=== PATIENT | female | born 1980 | race Caucasian/White ===

== ENCOUNTER 2024-05-29 14:51 | Emergency (ER) | payer BC, SELFPAY ==
[2024-05-29 15:04] VITALS: BP 129/86
[2024-05-29 15:32] LABS: Urine Albumin Trace (Neg - Trace); Urine Bilirubin 1+ (Negative); Urine Character Clear (Clear); Urine Glucose Negative (Negative); Urine Ketone 1+ (Negative); Urine Leukocyte Negative (Negative); Urine Nitrite Positive (Negative); Urine Occult Blood 4+ (Negative); Urine Specific Gravity 1.005 (<1.030); Urine Urobilinogen 2+ (Neg - 1+)
[2024-05-29 15:43] LABS: Urine Color Amber
--- NOTE | 2024-05-29 16:00 | ED.GENMED ---
History of Present Illness
General
Chief Complaint: Flank Pain
Source: patient
Exam Limitations: none
Time Seen by Provider: 05/29/24 15:48
History of Present Illness
History of Present Illness:
43-year-old female who presents with L flank pain. she reports that for the last 3 days has had pain, urgency, and dysuria. yesterday started with L flank pain and today it got worse. Patient does report a history of kidney stones. States she felt
chilled at home but no ashley fevers. No vomiting.
Past History
Past History
ED Past Medical History: Other (UTI, kidney stones, bipolar disorder, seizures)
Phy Exam
Physical Exam
Physical Exam:
CONSTITUTIONAL Vital signs reviewed, Patient alert and oriented to person, place and time. Well-appearing
HEAD atraumatic, normocephalic.
EYES eyelids normal to inspection, Extraocular muscles intact, Conjunctiva normal, Sclera normal.
NECK normal range of motion, Trachea midline, no jugular venous distention.
RESP no respiratory distress
BACK No obvious deformities, mild left CVA tenderness
Abdomen soft and nontender
UPPER EXTREMITY Gross Range of motion normal, gross motor strength normal
LOWER EXTREMITY Gross range of motion normal, Gross motor strength normal
NEURO Speech normal, No focal motor deficits include, Wedgefield coma scale 15, Memory normal, Cranial Nerves intact to screening exam.
SKIN Skin warm, dry, and normal in color.
PSYCHIATRIC Patient oriented to person place and time, Normal affect.
Course
Orders/Labs/Results
Orders:
Orders
05/29/24 15:19
Urinalysis Reflex To Culture Urgent
Date Specimen was Collected: 05/29/24
Time Specimen was Collected: 15:08
Urine Microscopic Reflex Cult Urgent
Urine Culture Urgent
MARTHA Source: U
Specimen Description:
Date Specimen was Collected: 05/29/24
Time Specimen was Collected: 15:08
05/29/24 15:58
US Renal With Bladder Urgent
Comment: bladder not full ok, looking at ureteral jets
Reason For Exam: L flank pain, h/o stones, currently with UTI
05/29/24 16:29
LevoFLOXacin [Levaquin] 750 mg PO NOW STA
Abnormal Lab Results
05/29/24
15:19
Urine Ketones 1+ A
(Negative)
Ur Occult Blood Reflex 4+ A
(Negative)
Urine Nitrite (Reflex) Positive A
(Negative)
Urine Bilirubin 1+ A
(Negative)
Urine Urobilinogen 2+ A
(Neg - 1+)
Urine Bacteria (Reflex) Few A
(Negative)
Vital Signs
Initial and Last Documented VS:
Initial Vital Signs
Temp Pulse Resp BP Pulse Ox
98.2 F 88 18 129/86 94
05/29/24 15:04 05/29/24 15:04 05/29/24 15:04 05/29/24 15:04 05/29/24 15:04
Last Documented Vital Signs
Temp Pulse Resp BP Pulse Ox
98.2 F 88 18 129/86 94
05/29/24 15:04 05/29/24 15:04 05/29/24 15:04 05/29/24 15:04 05/29/24 15:04
MDM/Problems Addressed
MDM/Problems Addressed:
Urinary tract infection
*Radiology
Radiology exam reviewed: radiology read reviewed
*Pulse Oximetry
Patient hypoxic: no
*Critical Care Note
Total Time (30-74mins, 75-104mins- exclusive of procedures): Not Applicable
Data Reviewed
Source: patient
Further Testing Considered But Not Given:
Consider CT but ultrasound shows no hydronephrosis.
Patient Management
Escalation/DeEscalation of care consider admission/obs:
Cover with Levaquin daily as per up-to-date. Patient is well-appearing and okay for discharge. Suspect pyelonephritis as etiology of her symptoms
ED Attending Note
-
Portions of this chart may have been created with voice recognition software.� Occasional wrong word or��sound alike� substitutions may have occurred due to the inherent limitations of voice recognition software.
Discharge Plan
Departure
Patient Disposition: Home (Routine Discharge)
Date of Disposition: 05/29/24
Time of Disposition: 17:49
Patient with high blood pressure during this ER visit?: No
Discharge Problem:
Pyelonephritis
Instructions: Urinary Tract Infection, Adult ED
Prescriptions:
New
levofloxacin 750 mg tablet
750 mg PO DAILY 7 Days Qty: 7 0RF
No Action
amoxicillin 875 mg tablet
875 mg PO BID Qty: 10 0RF
Referrals:
Maren Perkins MD [Family Provider] -
Activity Restrictions/Additional Instructions:
Please drink plenty fluids. Use ibuprofen and Tylenol for pain control. Please see your doctor in the next 1 week for follow-up and reevaluation. Return immediately for intractable vomiting, intolerance of antibiotics, worsening symptoms, or any
other concerns.
Interventions
Interventions:
*Risk Screen - Suicide Last Done: 05/29/24 15:04
*General Assessment Last Done: 05/29/24 15:04
*Neglect/Abuse Screening Last Done: 05/29/24 15:04
PQ-Nwcsnc-Upmorfezmj Assessment Last Done: 05/29/24 15:56
ED-Female Genitourinary Assessment Last Done: 05/29/24 15:56
Discharge Date and Time
Print Language: MONGOLIAN
[2024-05-29] MEDS: LEVAQUIN 750 MG PO (17:04)
[2024-05-29 17:23] LABS: Urine Bacteria Few (Negative); Urine Red Blood Cell 0-2 /HPF (0-2); Urine White Cell 0-2 /HPF (0-5)
[2024-05-29 17:50] VITALS: BP 128/78
== END 2024-05-29 18:02 | disposition home or self-care (01) ==
LOC: EMR 14:51
PROVIDERS: EMERGENCY PHYSICIAN Emergency Medicine; FAMILY PHYSICIAN Internal Medicine
DX: N10 Acute pyelonephritis (principal); F31.9 Bipolar disorder, unspecified; R56.9 Unspecified convulsions; Z87.442 Personal history of urinary calculi; Z87.440 Personal history of urinary (tract) infections
CPT/HCPCS: 99284; 76770; 81003; 81015; 87086

== ENCOUNTER 2025-08-24 01:02 | Emergency (ER) | payer BC, SELFPAY ==
[2025-08-24 01:05] VITALS: BP 170/88
[2025-08-24 01:17] VITALS: BMI 30.3
[2025-08-24 01:33] LABS: Urine Character Clear (Clear)
[2025-08-24] MEDS: ZOFRAN 4 MG IV (01:37)
[2025-08-24] MEDS: TORADOL 15 MG IV (01:37)
[2025-08-24] MEDS: NSS 1000 IV (01:39)
[2025-08-24 01:43] VITALS: BP 134/95
[2025-08-24 01:46] LABS: Urine Squamous Cell 26-30 /LPF (Few)
[2025-08-24 01:49] LABS: Urine Red Blood Cell 16-20 /HPF (0-2)
[2025-08-24 01:50] LABS: ALT (SGPT) 26 U/L (0-35); AST (SGOT) 26 U/L (14-36); Albumin 4.2 g/dl (3.5-5.0); Alkaline Phosphatase 71 U/L (38-126); Blood Urea Nitrogen 23 mg/dl (7-17); Calcium 9.6 mg/dl (8.4-10.2); Carbon Dioxide 21 mmol/L (22-30); Chloride 109 mmol/L (98-107); Estimated Creatinine Clearance 80 ml/min; Glucose 125 mg/dl (70-99); Potassium 3.8 mmol/L (3.5-5.1); Sodium 138 mmol/L (135-145); Total Protein 6.7 g/dl (6.3-8.2); eGFR > 60.00
[2025-08-24 01:52] LABS: HCG, Urine Qualitative Screen Negative
[2025-08-24 01:58] LABS: Hematocrit 42.0 % (37.0-47.0); Hemoglobin 13.9 g/dL (12.0-16.0); Mean Corp Hgb Conc. 33.1 g/dL (33.0-37.0); Mean Corpuscular Volume 85.7 fL (81.0-99.0); Nucleated Red Blood Cells % 0 %; Platelet Count 279 10^3/uL (130-400); Red Cell Dist. Width 13.2 % (11.5-14.5)
[2025-08-24 02:00] VITALS: BP 122/78
--- NOTE | 2025-08-24 02:53 | ED.GENMED ---
History of Present Illness
General
Chief Complaint: Flank Pain
Time Seen by Provider: 08/24/25 01:09
History of Present Illness
History of Present Illness:
Note:
CHIEF COMPLAINT(S)
Lower abdominal pain and vomiting.
HISTORY OF PRESENT ILLNESS
The patient is a 44-year-old female with a history of kidney stones, presenting with lower abdominal pain that she describes as 'stabbing' in nature, radiating to the vaginal area. The symptoms started earlier today. The patient reports episodes of
nausea and vomiting, with the most recent episode occurring around 9:00 AM. She took ibuprofen for pain relief earlier but it did not provide significant relief. She mentions occasional urination with small volumes and denies having fever or chills.
The patient is currently in perimenopause, experiencing menstrual cycles every two weeks and denies any possibility of . Also, she is concerned about a potential bladder-related issue.
PAST MEDICAL HISTORY
Seizure disorder.
PAST SURGICAL HISTORY
Not discussed.
ADDITIONAL HISTORY OBTAINED FROM SOURCES OTHER THAN THE PATIENT
Not discussed.
EXTERNAL RECORDS REVIEWED
Not discussed.
CHRONIC MEDICAL CONDITIONS SIGNIFICANTLY AFFECTING CARE
History of kidney stones.
Seizure disorder.
SOCIAL DETERMINANTS AFFECTING HEALTH
Not discussed.
ALLERGIES
Not discussed.
FAMILY HISTORY
Not discussed.
IMMUNIZATION HISTORY
Not discussed.
SOCIAL HISTORY
The patient is a teacher.
MEDICATIONS
Ibuprofen, as needed for pain.
Topamax for seizures.
REVIEW OF SYSTEMS
- Constitutional: Denies fever or chills.
- Gastrointestinal: Nausea and vomiting noted.
- Genitourinary: Occasional urination with small volume, no fever.
- Neurological: History of seizures, maintained on Topamax.
PHYSICAL EXAM
General: Alert, no acute distress.
Skin: Warm, dry.
Head: Normocephalic, atraumatic.
Neck: Supple, trachea midline.
Eyes, Ears, Nose, Mouth, and Throat: Oral mucosa moist.
Cardiovascular: Normal peripheral perfusion, no edema.
Respiratory: Respirations are non-labored.
Gastrointestinal: Abdomen nondistended.
Back: Normal range of motion, normal alignment.
Musculoskeletal: Normal range of motion, normal strength.
Neurological: Alert and oriented to person, place, time, and situation. No focal neurological deficit observed.
Psychiatric: Cooperative, appropriate mood and affect.
PROBLEM LIST
Acute:
- Lower abdominal pain with vomiting, likely related to kidney stone or urinary infection.
Chronic:
- Seizure disorder.
PLAN
- Perform a CT scan to evaluate for possible kidney stones or other causes of abdominal pain.
- Conduct a urine analysis to check for urinary tract infection.
- Administer medication for nausea as needed.
- Prescribe Toradol for pain management if ibuprofen is ineffective.
DIFFERENTIAL DIAGNOSIS
The Differential Diagnosis includes, in no particular order and is not limited to:
1. Kidney stones
2. Urinary tract infection
3. Ovarian cyst
4. Ectopic (ruled out due to no chance of )
5. Appendicitis
6. Gastroenteritis
7. Pelvic inflammatory disease
8. Diverticulitis
9. Small bowel obstruction
10. Endometriosis
Disposition:
SUMMARY OF ENCOUNTER
The patient is a 44-year-old female who presented with lower abdominal pain and discomfort. A CT scan revealed a 5-millimeter kidney stone in the bladder. The patient reported experiencing burning during urination, indicating symptoms associated
with kidney stones. Additionally, she mentioned possibly passing a stone soon. Given the size of the stone and associated symptoms, it was decided to manage the condition with hospitalization.
DISPOSITION
Admit to hospitalist service.
ASSESSMENT
The patients abdominal pain and urinary symptoms are consistent with the presence of a kidney stone in the bladder. Given the size of the stone and associated urinary discomfort, inpatient observation and management are necessary.
PLAN
Admission for further observation and management of 5-millimeter bladder stone. Ensure adequate hydration and monitor for any changes or progression in symptoms.
INDEPENDENT REVIEW OF LABS AND INTERPRETATION OF TESTS
- My independent review of the CT scan shows a 5-millimeter stone located in the bladder.
MEDICAL DECISION MAKING
- Complexity of Data Reviewed:
Chronic conditions affecting care: History of kidney stones, seizure disorder. Differential diagnosis includes kidney stones, urinary tract infection, ovarian cyst, ectopic (ruled out), appendicitis, gastroenteritis, pelvic inflammatory
disease, diverticulitis, small bowel obstruction, endometriosis.
- Data:
Category 1:
My independent interpretation of the CT scan revealed a 5-millimeter bladder stone.
-Risk:
Consideration of Admission/Observation: Escalation of care including admission was considered due to the complexity and risk of the patients presenting complaint and underlying comorbidities. Admission was deemed necessary for close monitoring and
management of the bladder stone.
DIAGNOSIS
- Urolithiasis, bladder stone (ICD-10: N21.0)
- Urinary symptoms associated with urolithiasis (ICD-10: R30.0)
Past History
Past History
ED Past Medical History: Other (UTI, kidney stones, bipolar disorder, seizures)
Phy Exam
Physical Exam
Physical Exam:
.
Course
Orders/Labs/Results
Orders:
Orders
08/24/25 01:24
Complete Blood Count/With Diff Urgent
Comprehensive Metabolic Panel Urgent
HCG, Urine Qualitative Screen Urgent
Date Specimen was Collected: 08/24/25
Time Specimen was Collected: 01:23
Comment: ADDED
Urinalysis Reflex To Culture Urgent
Date Specimen was Collected: 08/24/25
Time Specimen was Collected: 01:23
Urine Microscopic Reflex Cult Urgent
08/24/25 01:33
CT Abd/pel Without Iv Or Oral Urgent
Comment:
Reason For Exam: l flank pain
0.9% Sodium Chloride 1000 ml [Nss] 1,000 ml IV BOLUS
Ketorolac [Toradol] 15 mg IV NOW STA
Ondansetron Injectable [Zofran] 4 mg IV NOW STA
Test Result ONCE
08/24/25 01:35
Add On- LAB Urgent
Tests Added?: HCG qual - urine
Abnormal Lab Results
08/24/25
01:24
WBC 14.1 H 10^3/uL
(4.8-10.8)
Abs Immat Gran (auto) 0.1 H 10^3/uL
(0-0.05)
Absolute Neuts (auto) 11.3 H 10^3/uL
(1.4-6.5)
Absolute Monos (auto) 0.8 H 10^3/uL
(0.1-0.6)
Neutrophils % 80.0 H %
(42.2-75.2)
Lymphocytes % 13.2 L %
(20.5-51.1)
Chloride 109 H mmol/L
(98-107)
Carbon Dioxide 21 L mmol/L
(22-30)
BUN 23 H mg/dl
(7-17)
Glucose 125 H mg/dl
(70-99)
Ur Occult Blood Reflex 3+ A
(Negative)
Urine RBC 16-20 A /HPF
(0-2)
Urine Bacteria (Reflex) Few A
(Negative)
Urine Albumin (Reflex) 2+ A
(Neg - Trace)
08/24/25 01:24
08/24/25 01:24
Vital Signs
Initial and Last Documented VS:
Initial Vital Signs
Temp Pulse Resp BP Pulse Ox
97.9 F 59 20 170/88 100
08/24/25 01:05 08/24/25 01:05 08/24/25 01:05 08/24/25 01:05 08/24/25 01:05
Last Documented Vital Signs
Temp Pulse Resp BP Pulse Ox
97.9 F 59 20 122/78 99
08/24/25 01:05 08/24/25 01:05 08/24/25 01:05 08/24/25 02:00 08/24/25 02:00
*Pulse Oximetry
SaO2: 99
Oxygen Mode of Delivery: Room air
Patient hypoxic: no
*Critical Care Note
Total Time (30-74mins, 75-104mins- exclusive of procedures): Not Applicable
Update Note
Update Note:
NAME: DOLLY MARSHALL
DATE OF EXAM: 08/24/2025
Patient No: [id number]
Physician: JOY^P.
Date of : 1980
Past Medical History (entered by Technologist):
Reason For Exam (entered by Technologist):
Other Notes (entered by Technologist): lt flank pain h/o stones
Additional Information (per [facility]):
CT ABDOMEN AND PELVIS WITHOUT IV CONTRAST
Comparison: None available
IMPRESSION:
There is a 5 mm calculus in the right side of the urinary bladder. Suspect this likely recently passed from the left ureter as there is mild left-sided hydroureteronephrosis and perinephric/periureteral fat stranding, without evidence for a
ureteral calculus. Can correlate clinically for superimposed infection.
Several nonobstructing calculi in both kidneys. No right-sided hydronephrosis.
There is a 3.4 cm probable cyst in the left adnexa. Ultrasound could be considered for further assessment.
Case finalized on 08/24/25 02:52 EDT
Ever Walter M.D.
This report has been electronically signed and verified by the Radiologist whose name is printed above.
NAME: DOLLY MARSHALL
DATE OF EXAM: 08/24/2025
Patient No: [id number]
Physician: JOY^P.
Date of : 1980
Past Medical History (entered by Technologist):
Reason For Exam (entered by Technologist): LLQ Pain , HX of kidney stones
Other Notes (entered by Technologist): Dominant follicle seen on right ovary, septated cyst seen on left ovary. No evidence of torsion.
Additional Information (per [facility]):
ULTRASOUND PELVIS
COMPARISON: None
IMPRESSION:
Uterus is normal. Small nabothian cysts in the cervix. Endometrial thickness is 14 mm.
Right ovary is normal. Normal Doppler flow.
Minimally complex left ovarian cyst measuring 3.2 cm. Normal Doppler flow.
No free fluid in the pelvis.
Case finalized on 08/24/25 04:06 EDT
Derick Jackson M.D.
This report has been electronically signed and verified by the Radiologist whose name is printed above.
ED Attending Note
-
Portions of this chart may have been created with voice recognition software.� Occasional wrong word or��sound alike� substitutions may have occurred due to the inherent limitations of voice recognition software.
Discharge Plan
Departure
Patient Disposition: Home (Routine Discharge)
Date of Disposition: 08/24/25
Time of Disposition: 04:37
Patient with high blood pressure during this ER visit?: Yes
Condition: Good
Discharge Problem:
Kidney stone on left side
Instructions: Kidney Stones (DC), How to Strain Your Urine, BLOOD PRESSURE
Prescriptions:
New
diclofenac sodium 75 mg tablet,delayed release (DR/EC)
75 mg PO BID Qty: 10 0RF
tamsulosin 0.4 mg capsule
0.4 mg PO DAILY Qty: 7 0RF
No Action
lamotrigine [Lamictal] 150 mg Tablet
150 mg PO DAILY
bupropion HCl [Wellbutrin SR] 150 mg Tablet Sustained-Release 12 Hr
150 mg PO DAILY
topiramate [Topamax] 200 mg Tablet
200 mg PO DAILY
Referrals:
[facility] [Other]
Abimael Duenas MD [Active, Urology]
Maren Perkins MD [Family Provider]
Activity Restrictions/Additional Instructions:
Your prescriptions were sent electronically to the pharmacy that you specified.
Thank You for choosing [facility].
It was a pleasure meeting you and taking part in your care. We hope for your continued healing and wellness.
Please read discharge instructions in their entirety. However, they are for general education and may not describe your exact diagnosis at discharge. Information on your ER visit and medical conditions were discussed with you along with appropriate
follow up information...
If indicated, please take your medications as instructed and indicated on discharge paperwork.
Please schedule a follow up appointment as directed. Call to schedule an appointment
Please return to the emergency department with ANY change in, persisting, or worsening of symptoms. If any of your symptoms do not improve, or persist, or become more severe within 6-12 hours, please return to the emergency department for further
care.
Please return to the emergency department if you develop a headache, neck pain/stiffness, fever greater than 100.4F, chest pain, shortness of breath, persistent nausea, vomiting, slurred speech, difficulty walking, numbness/tingling, weakness, signs
of infection or any other symptoms that are worrisome to you.
If you have any questions or concerns please do not hesitate to call the Hospital at .
Interventions
Interventions:
*Risk Screen - Suicide Last Done: 08/24/25 01:05
*General Assessment Last Done: 08/24/25 01:16
*Neglect/Abuse Screening Last Done: 08/24/25 01:05
*ED- Fall Risk Assessment Last Done: 08/24/25 01:05
*ED COVID-19 Vaccine History Last Done: 08/24/25 01:05
*ED Influenza Vaccine History Last Done: 08/24/25 01:05
VQ-Cfypzk-Jjylagucki Assessment Last Done: 08/24/25 01:14
ED-Female Genitourinary Assessment Last Done: 08/24/25 01:14
Discharge Date and Time
Print Language: MONGOLIAN
[2025-08-24 04:45] VITALS: BP 123/81
[2025-08-24 04:47] VITALS: BP 123/81
== END 2025-08-24 04:48 | disposition home or self-care (01) ==
LOC: EMR 01:02
PROVIDERS: EMERGENCY PHYSICIAN Student in an Organized Health Care Education/Training Program; FAMILY PHYSICIAN Internal Medicine
DX: N13.2 Hydronephrosis with renal and ureteral calculous obstruction (principal); G40.909 Epilepsy, unspecified, not intractable, without status epilepticus; F31.9 Bipolar disorder, unspecified; N83.292 Other ovarian cyst, left side; N88.8 Other specified noninflammatory disorders of cervix uteri; Z87.442 Personal history of urinary calculi; Z87.440 Personal history of urinary (tract) infections
CPT/HCPCS: 99284; 96374; 96375; 96361; 74176; 76830; 80053; 81003; 81015; 81025; 85025